=== PATIENT | male | born 1995 | race Caucasian/White ===

== ENCOUNTER 2017-04-26 16:23 | Emergency (ER) | payer OTHER ==
[~2017-04-26] VITALS: Ht 182.9 cm; Wt 79.7 kg
[~2017-04-26 16:23] MED LIST: ALPR-411 PO
[2017-04-26 16:28] VITALS: TEMP 36.8; Ht 182.9 cm; Wt 79.7 kg
--- NOTE | 2017-04-26 16:53 | DIAGNOSTIC IMAGING REPORT ---
R SHOULDER MIN 2 VIEWS ROUTINE CLINICAL HISTORY: R shoulder pain COMPARISON: None. DISCUSSION: No fractures or dislocations are visualized. There are no erosive or destructive changes. IMPRESSION: Unremarkable conventional radiographic evaluation of the right shoulder. Electronically signed by: Reji Hood M.D. 04/26/2017 4:51 PM Dictated Date/Time: 04/26/2017 4:51 PM
[2017-04-26 17:49] VITALS: BP 118/68; PULSE 57; O2SAT 98
--- NOTE | 2017-04-26 20:45 | EMERGENCY ROOM VISIT NOTE ---
History First contact with patient: 16:32 Chief Complaint: SHOULDER PAIN Stated Complaint: SHOULDER PAIN/INJURY History of Present Illness The patient is a 22 year old male who presents to the Emergency Room with complaints of generalized discomfort around the right shoulder. 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 The patient reports that he has been pushing himself over the past several weeks. After lifting 3 days ago, the patient reported that he started to get tightness around the right shoulder. He also noticed a bulging of his right lateral oblique muscles, and noticed that the right scapula was not quite as prominent as the left. He also reports generalized discomfort about the shoulder with range of motion. He denies any history of dislocation. He also denies any pain radiating into the neck. 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 The patient is right-hand dominant. He currently rates his discomfort a 3 out of 10. He denies any prior history of right shoulder injuries. Review of Systems 10 system review was performed and was negative except for pertinent positives and negatives as indicated in history of present illness Past Medical/Surgical History Medical Problems: (1) Brief Mood Alterations (2) Insomnia (3) No Known Active Medical Problems Social History Problems: (1) Alcohol abuse Social History Smoking Status: Never Smoker Alcohol Use: occasionally Drug Use: marijuana Marital Status: single Occupation Status: [employer] Current/Historical Medications Scheduled PRN Alprazolam (Xanax), 0.5 MG PO TID PRN for Anxiety Physical Exam Vital Signs Date Time Temp Pulse Resp B/P (MAP) Pulse Ox O2 Delivery O2 Flow Rate FiO2 04/26/17 17:49 57 16 118/68 98 04/26/17 16:28 36.8 67 18 133/72 98 Room Air Physical Exam CONSTITUTIONAL: Healthy and well nourished. Alert and oriented X 3 with positive affect. Patient does not appear in any acute distress. HEENT: Normocephalic, atraumatic. Pupils equal, round and reactive. NECK: Full active range of motion without discomfort. Patient has no tenderness to palpation of the cervical musculature or central cervical spine. RESPIRATORY: Clear to auscultation bilaterally with no wheezing, crackles, rhonchi or stridor. CARDIOVASCULAR: Regular rate and rhythm with no murmurs, rubs or gallops. GASTROINTESTINAL: Bowel sounds present in all quadrants. Soft and nontender to palpation. MUSCULOSKELETAL: Examination shows mild tenderness to palpation of the right bicipital groove. He has no focal tenderness over the acromioclavicular joint or posterior shoulder region. He has mild discomfort through the medial scapular border. No scapular winging is noted. Otherwise passive range of motion of the shoulder does not cause any significant discomfort. Equal handgrip bilaterally. Distal pulses are intact. INTEGUMENTARY: No rash or other significant dermatologic conditions noted. NEUROLOGIC: Right deltoid sensation and right upper extremity are sensory intact. Medical Decision & Procedures ER Provider Diagnostic Interpretation: My interpretation of right shoulder x-rays does not show any obvious fractures, separation or dislocation. Radiologist report is as follows: R SHOULDER MIN 2 VIEWS ROUTINE CLINICAL HISTORY: R shoulder pain COMPARISON: None. DISCUSSION: No fractures or dislocations are visualized. There are no erosive or destructive changes. IMPRESSION: Unremarkable conventional radiographic evaluation of the right shoulder. ED Course Patient history and physical exam were performed. Nurse's notes were reviewed. Vital signs reviewed and were normal. X-rays of the right shoulder were normal. The patient was advised that he likely has a muscular/soft tissue injury of the shoulder, likely from his lifting activities. The patient was encouraged to limit his activities over the next week. Intermittent application of ice to the shoulder would also help. He was encouraged alternate ibuprofen and Tylenol as needed for pain. I did encourage the patient follow-up with orthopedics if symptoms are not improving within the next week. The patient was provided contact information for [facility] should he wish local follow-up. The patient was happy with plan of care, voiced understanding of all discharge instructions, refused any analgesics while in the emergency department, and rated his pain a 3 out of 10 at the conclusion of my exam. Medical Decision Medication Reconcilliation Current Medication List: was personally reviewed by me Blood Pressure Screening Patient's blood pressure: Normal blood pressure Impression Primary Impression: Right shoulder strain Departure Information Dispostion Home / Self-Care Condition GOOD Referrals No Doctor, Assigned Saeid Barajas M.D. [facility] (PCP) Forms HOME CARE DOCUMENTATION FORM, IMPORTANT VISIT INFORMATION Patient Instructions [employer] Additional Instructions Avoid weight lifting for the next week. Intermittently apply ice to the shoulder. Ibuprofen 800 mg and/or Tylenol 1000 mg every 8 hours. You may also alternate these medications for more effective pain relief: Ibuprofen --4 HRS--> Tylenol --4 HRS--> ibuprofen --4 HRS--> Tylenol .... Follow-up with [facility] (Dr. Barajas) if symptoms are not improving within the next week. Problem Qualifiers Primary Impression: Right shoulder strain Encounter type: initial encounter Qualified Codes: S46.911A - Strain of unspecified muscle, fascia and tendon at shoulder and upper arm level, right arm , initial encounter
== END 2017-04-26 17:49 | disposition home or self-care (01) ==
LOC: C.EDB 16:24 → C.EDD 17:49
DX: S46.911A Strain of unspecified muscle, fascia and tendon at shoulder and upper arm level, right arm, initial encounter (principal); X50.0XXA Overexertion from strenuous movement or load, initial encounter; Y93.B3 Activity, free weights; F12.90 Cannabis use, unspecified, uncomplicated